=== PATIENT | female | born 1980 ===

== ENCOUNTER 2019-04-16 23:02 | Emergency (ER) | payer OTHER ==
[~2019-04-16] VITALS: Ht 150 cm; Wt 77.2 kg
[2019-04-16 23:09] VITALS: BP 118/78; TEMP 98.2
[2019-04-17 00:17] LABS: COLLECTION METHOD CLEAN CATCH
[2019-04-17 00:22] LABS: BASO % 0.5 % (0.0-2.0); EOS % 0.5 % (0-4.0); GRAN # 4.1 (1.4-6.5); GRAN % 71.9 % (42.2-75.2); HEMATOCRIT 40.7 % (37.0-47.0); HEMOGLOBIN 12.8 g/dl (12.5-16.0); LYMPH % 18.4 % (20.0-51.0); MEAN CELL VOLUME 78 fl (80.0-100.0); MEAN CORPUSCULAR HEMOGLOBIN 25 pg (27.0-31.0); MEAN CORPUSCULAR HGB CONC 31 g/dl (33.0-37.0); MEAN PLATELET VOLUME 9.8 fl (7.4-10.4); MONO # 0.5 (0.1-0.6); MONO % 8.3 % (1.7-9.3); PLATELET COUNT 270 K/mm3 (130-400); RED BLOOD COUNT 5.21 M/mm3 (4.10-5.30)
[2019-04-17 00:25] LABS: MUCOUS Present /lpf; PH 7 (5-8); SQUAMOUS EPITHELIAL 0-2 /hpf; URINE APPEARANCE Clear; URINE BACTERIA None Seen /hpf; URINE BILIRUBIN Negative (NEGATIVE); URINE BLOOD Negative (NEGATIVE); URINE COLOR Yellow; URINE GLUCOSE Negative (NEGATIVE); URINE KETONE Negative (NEGATIVE); URINE LEUKOCYTE ESTERASE Negative (NEGATIVE); URINE NITRATE Negative (NEGATIVE); URINE PROTEIN(semi-quant) Negative (NEGATIVE); URINE RBC 0-2 /hpf; URINE UROBILINOGEN Negative (NEGATIVE)
[2019-04-17 00:34] LABS: ALANINE AMINOTRANSFERASE < 6 U/L (9-52); ALBUMIN 3.9 gm/dL (3.5-5.0); ALKALINE PHOSPHATASE 78 U/L (50-136); ANION GAP 11 mmol/L (7-16); AST,SGOT 18 U/L (15-37); BILIRUBIN,TOTAL 0.5 mg/dL (0.0-1.0); BLOOD UREA NITROGEN 10 mg/dL (7-17); C-REACTIVE PROTEIN 2.1 mg/dL (0.0-0.9); CALCIUM 9.1 mg/dL (8.4-10.2); CARBON DIOXIDE 24 mmol/L (22-30); CHLORIDE 104 mmol/L (98-107); CREATININE, serum 0.64 (0.52-1.25); GLUCOSE 94 mg/dL (74-106); LIPASE 31 U/L (23-300); SODIUM 139 mmol/L (137-145); TOTAL PROTEIN 7.5 gm/dL (6.4-8.2)
[2019-04-17 00:44] LABS: TROPONIN-I < 0.012 ng/mL (0.000-0.035)
[2019-04-17 01:36] VITALS: PULSE 67
== END 2019-04-17 01:36 | disposition home or self-care (01) ==
LOC: COL.ER 23:02
PROVIDERS: Nurse Practitioner
DX: R07.89 Other chest pain (principal)
CPT/HCPCS: J1885; J7030

== ENCOUNTER 2019-05-30 18:08 | Emergency (ER) | payer OTHER ==
[2019-05-30 18:15] VITALS: BP 124/75; TEMP 97
[2019-05-30 18:44] LABS: EOS # 0.1 (0.0-0.7); EOS % 1.3 % (0-4.0); GRAN # 2.1 (1.4-6.5); GRAN % 52.7 % (42.2-75.2); HEMATOCRIT 39.3 % (37.0-47.0); HEMOGLOBIN 12.3 g/dl (12.5-16.0); LYMPH # 1.4 (1.2-3.4); LYMPH % 35.9 % (20.0-51.0); MEAN CELL VOLUME 79 fl (80.0-100.0); MEAN CORPUSCULAR HEMOGLOBIN 25 pg (27.0-31.0); MEAN CORPUSCULAR HGB CONC 31 g/dl (33.0-37.0); MEAN PLATELET VOLUME 9.8 fl (7.4-10.4); MONO # 0.4 (0.1-0.6); MONO % 8.8 % (1.7-9.3); PLATELET COUNT 301 K/mm3 (130-400); RED BLOOD COUNT 4.96 M/mm3 (4.10-5.30); REDCELL DISTRIBUTION WIDTH-CV 13.7 % (11.5-14.5)
[2019-05-30 18:56] LABS: ALANINE AMINOTRANSFERASE < 6 U/L (9-52); ALBUMIN 3.7 gm/dL (3.5-5.0); ALKALINE PHOSPHATASE 83 U/L (50-136); ANION GAP 9 mmol/L (7-16); AST,SGOT 18 U/L (15-37); BILIRUBIN,TOTAL 0.4 mg/dL (0.0-1.0); BLOOD UREA NITROGEN 8 mg/dL (7-17); C-REACTIVE PROTEIN 1.2 mg/dL (0.0-0.9); CALCIUM 8.9 mg/dL (8.4-10.2); CARBON DIOXIDE 25 mmol/L (22-30); CHLORIDE 106 mmol/L (98-107); CREATININE, serum 0.56 (0.52-1.25); GLUCOSE 93 mg/dL (74-106); POTASSIUM 4.3 mmol/L (3.4-5.0); SODIUM 140 mmol/L (137-145); TOTAL PROTEIN 7.1 gm/dL (6.4-8.2)
[2019-05-30 19:37] LABS: COLLECTION METHOD CLEAN CATCH
[2019-05-30 19:50] LABS: MUCOUS Present /lpf; PH 6 (5-8); URINE APPEARANCE Hazy; URINE BACTERIA None Seen /hpf; URINE BILIRUBIN Negative (NEGATIVE); URINE BLOOD Negative (NEGATIVE); URINE COLOR Yellow; URINE GLUCOSE Negative (NEGATIVE); URINE KETONE Negative (NEGATIVE); URINE LEUKOCYTE ESTERASE Negative (NEGATIVE); URINE NITRATE Negative (NEGATIVE); URINE PROTEIN(semi-quant) Negative (NEGATIVE); URINE RBC 0-2 /hpf; URINE UROBILINOGEN Negative (NEGATIVE)
[2019-05-30 21:50] VITALS: PULSE 61
== END 2019-05-30 22:19 | disposition home or self-care (01) ==
LOC: COL.ER 18:08
PROVIDERS: Emergency Medicine
DX: R10.31 Right lower quadrant pain (principal); R10.32 Left lower quadrant pain; R19.7 Diarrhea, unspecified
CPT/HCPCS: J1885; J2405; J7030; Q9967

== ENCOUNTER 2019-06-29 22:33 | Emergency (ER) | payer OTHER ==
[2019-06-29 22:43] VITALS: BP 110/67; TEMP 98.3
[2019-06-29 23:37] LABS: BASO % 0.5 % (0.0-2.0); EOS # 0.1 (0.0-0.7); EOS % 1.4 % (0-4.0); GRAN # 3.9 (1.4-6.5); HEMATOCRIT 38.2 % (37.0-47.0); HEMOGLOBIN 11.8 g/dl (12.5-16.0); LYMPH # 1.8 (1.2-3.4); LYMPH % 28.5 % (20.0-51.0); MEAN CELL VOLUME 78 fl (80.0-100.0); MEAN CORPUSCULAR HEMOGLOBIN 24 pg (27.0-31.0); MEAN CORPUSCULAR HGB CONC 31 g/dl (33.0-37.0); MEAN PLATELET VOLUME 9.3 fl (7.4-10.4); MONO # 0.5 (0.1-0.6); MONO % 7.3 % (1.7-9.3); PLATELET COUNT 306 K/mm3 (130-400); RED BLOOD COUNT 4.87 M/mm3 (4.10-5.30); REDCELL DISTRIBUTION WIDTH-CV 13.7 % (11.5-14.5)
[2019-06-30 00:03] LABS: ALANINE AMINOTRANSFERASE < 6 U/L (9-52); ALBUMIN 4.3 gm/dL (3.5-5.0); ALKALINE PHOSPHATASE 86 U/L (50-136); ANION GAP 8 mmol/L (7-16); AST,SGOT 28 U/L (15-37); BILIRUBIN,TOTAL 0.2 mg/dL (0.0-1.0); BLOOD UREA NITROGEN 13 mg/dL (7-17); C-REACTIVE PROTEIN 1.9 mg/dL (0.0-0.9); CARBON DIOXIDE 26 mmol/L (22-30); CHLORIDE 105 mmol/L (98-107); CREATININE, serum 0.59 (0.52-1.25); GLUCOSE 100 mg/dL (74-106); POTASSIUM 4.3 mmol/L (3.4-5.0); SODIUM 139 mmol/L (137-145); TOTAL PROTEIN 7.5 gm/dL (6.4-8.2)
[2019-06-30 00:32] VITALS: PULSE 75
== END 2019-06-30 00:33 | disposition home or self-care (01) ==
LOC: COL.ER 22:33
PROVIDERS: Nurse Practitioner
DX: R51 Headache (principal)

== ENCOUNTER 2019-11-17 00:40 | Emergency (ER) | payer OTHER ==
[~2019-11-17] VITALS: Ht 150 cm; Wt 70.0 kg
[2019-11-17 00:43] VITALS: TEMP 97.2
[2019-11-17 01:23] LABS: COLLECTION METHOD CLEAN CATCH
[2019-11-17 01:28] LABS: PH 6 (5-8); SQUAMOUS EPITHELIAL 0-2 /hpf; URINE APPEARANCE Clear; URINE BACTERIA None Seen /hpf; URINE BILIRUBIN Negative (NEGATIVE); URINE BLOOD Negative (NEGATIVE); URINE COLOR Yellow; URINE GLUCOSE Negative (NEGATIVE); URINE KETONE Negative (NEGATIVE); URINE LEUKOCYTE ESTERASE Negative (NEGATIVE); URINE NITRATE Negative (NEGATIVE); URINE PROTEIN(semi-quant) Negative (NEGATIVE); URINE RBC 0-2 /hpf; URINE UROBILINOGEN Negative (NEGATIVE)
[2019-11-17 01:37] LABS: BASO % 0.7 % (0.0-2.0); EOS # 0.1 (0.0-0.7); EOS % 1.5 % (0-4.0); GRAN # 3.3 (1.4-6.5); GRAN % 54.5 % (42.2-75.2); HEMATOCRIT 38.9 % (37.0-47.0); HEMOGLOBIN 11.7 g/dl (12.5-16.0); LYMPH % 33.3 % (20.0-51.0); MEAN CELL VOLUME 80 fl (80.0-100.0); MEAN CORPUSCULAR HEMOGLOBIN 24 pg (27.0-31.0); MEAN CORPUSCULAR HGB CONC 30 g/dl (33.0-37.0); MEAN PLATELET VOLUME 9.9 fl (7.4-10.4); MONO # 0.6 (0.1-0.6); MONO % 9.7 % (1.7-9.3); PLATELET COUNT 274 K/mm3 (130-400); RED BLOOD COUNT 4.89 M/mm3 (4.10-5.30); REDCELL DISTRIBUTION WIDTH-CV 14.8 % (11.5-14.5)
[2019-11-17 01:48] LABS: ALANINE AMINOTRANSFERASE < 6 U/L (9-52); ALBUMIN 3.9 gm/dL (3.5-5.0); ALKALINE PHOSPHATASE 66 U/L (50-136); ANION GAP 8 mmol/L (7-16); AST,SGOT 15 U/L (15-37); BILIRUBIN,TOTAL < 0.1 mg/dL (0.0-1.0); BLOOD UREA NITROGEN 12 mg/dL (7-17); CALCIUM 8.8 mg/dL (8.4-10.2); CARBON DIOXIDE 25 mmol/L (22-30); CHLORIDE 107 mmol/L (98-107); CREATININE, serum 0.63 (0.52-1.25); GLUCOSE 108 mg/dL (74-106); SODIUM 140 mmol/L (137-145); TOTAL PROTEIN 7.2 gm/dL (6.4-8.2)
[2019-11-17 02:18] LABS: HCG,QUANTITATIVE 3730 mIU/mL (0-5)
[2019-11-17 05:45] VITALS: BP 111/77; PULSE 74
== END 2019-11-17 05:47 | disposition home or self-care (01) ==
LOC: COL.ER 00:40
PROVIDERS: Emergency Medicine
DX: O26.891 Other specified pregnancy related conditions, first trimester (principal); R10.2 Pelvic and perineal pain; Z3A.01 Less than 8 weeks gestation of pregnancy; Z98.890 Other specified postprocedural states
CPT/HCPCS: J7030

== ENCOUNTER 2019-11-29 09:26 | Day surgery (SDC) | payer OTHER ==
[2019-11-29] VITALS (10 sets, daily range): BP systolic 100–124; BP diastolic 44–73; PULSE 46–67; TEMP 97.9–98
[~2019-11-29] VITALS: Ht 152.4 cm; Wt 76.1 kg
[2019-11-29] MEDS ORDERED: MOTRIN 800800 MG/TAB PO (09:42)
--- NOTE | 2019-11-29 10:30 | NUR ---
DR BOYCE INTO SEE PATIENT AND TALKED WITH TO TRANSLATE. DR BOYCE GAVE PATIENT'S A PRESCRIPTION FOR MOTRIN 800MG
--- NOTE | 2019-11-29 10:31 | NUR ---
CALL LIGHT IN REACH AT BEDSIDE.
--- NOTE | 2019-11-29 10:39 | NUR ---
I OFFERED TO USE A SEARCH STRATEGIST TO ASSIST WITH TRANSLATION. PATIENT DENIES NEEDING A SEARCH STRATEGIST. (OFFERED SEVERAL TIMES)
--- NOTE | 2019-11-29 11:25 | NUR ---
TO RM 5 PER CART FROM [facility] ARRIVAL PATIENT CRYING IN PAIN. Arnaldo SPENCE CRNA STATED IF THE ORAL PAIN MED DOESN'T HELP SHE WILL ORDER TORADOL. DENIES NAUSEA ( PER TRANSLATED BY )
--- NOTE | 2019-11-29 11:40 | NUR ---
RECEIVED PERCOCET 5MG PO ORDERED
--- NOTE | 2019-11-29 11:55 | NUR ---
PATIENT SLEEPING QUIETLY.
--- NOTE | 2019-11-29 12:10 | NUR ---
AWAKE ON AND OFF. WHEN SHE IS AWAKE SHE HAS A GRIMACE ON HER FACE.
--- NOTE | 2019-11-29 12:45 | NUR ---
RECEIVED 2ND PERCOCET 5MG ORDERED FOR C/O PAIN 08/15.
--- NOTE | 2019-11-29 13:05 | NUR ---
RECEIVED TORADOL 30MG IV PER ORDER.
--- NOTE | 2019-11-29 13:15 | NUR ---
STATED PAIN IS BETTER 3/10 RECEIVED MUFFIN AND APPLE JUICE.
--- NOTE | 2019-11-29 13:25 | NUR ---
C/O FEELING NAUSEATED . RECEIVED ZOFRAN 4MG IV
--- NOTE | 2019-11-29 13:40 | NUR ---
C/O FEELING LIGHT HEADED AND DIZZY. CONTINUES TO C/O NAUSEA RECEIVED TOAST.
--- NOTE | 2019-11-29 14:07 | NUR ---
PATIENT STATED SHE IS FEELING BETTER WITH JUST LITTLE BIT OF NAUSEA AND PAIN 3/10. REQUESTED TO LOWER HEAD OF BED AND REST. LOWERED HOB AND TURNED DOWN LIGHTS. PATIENT SLEEPING.
--- NOTE | 2019-11-29 14:10 | NUR ---
PATIENT DID EAT 1 SLICE OF TOAST AND DRANK JUICE.
--- NOTE | 2019-11-29 14:30 | NUR ---
SLEEPING QUIETLY WITH NO SIGNS OF DISTRESS.
--- NOTE | 2019-11-29 14:49 | NUR ---
PATIENT AWAKENS EASILY. STATED SHE FEELS BETTER EXCEPT FOR THE DIZZYNESS. RAISED THE HEAD OF THE BED SLOWLY
--- NOTE | 2019-11-29 15:11 | NUR ---
FAISAL MACIEL CALLED CONCERNING PATIENTS DIZZINESS. ORDER TO GIVE ANTIVERT 25MG PO NOW. AFTER GIVING THE MEDICATION PATIENT SAID SHE WANTED TO STAY THE NIGHT. I EXPLAINED THAT MOST OF THE TIME PATIENT GO HOME AFTER A D&C PROCEDURE. I DID OFFER TO CALL DR BOYCE IF THEY WOULD LIKE. PATIENT'S THEN SAID HE WANTED TO GO OVER THE PAPERWORK TO GO HOME.
--- NOTE | 2019-11-29 15:20 | NUR ---
PATIENT AMBULATED TO BATHROOM AND TOLERATED WELL STATED SHE STILL FELT "LITTLE DIZZY" PER TRANSLATION FROM . DISCONTNIUED IV AND INT- PATIENT GETTING DRESSED. PATIENT STATED CONCERNS OF HER CHILDREN LETTING HER REST. INSTRUCTED PATIENTS HE WOULD NEED TO TAKE OF CHILDREN SO PATIENT COULD REST AT HOME, HE VERBALIZED UNDERSTANDING.
--- NOTE | 2019-11-29 15:35 | NUR ---
RECEIVED DISCHARGE INSTRUCTIONS - TRANSLATED TO PATIENT BY CARLOS EDUARDO BARLOW.
--- NOTE | 2019-11-29 16:03 | NUR ---
DISCHARGED PER WC BY NURSING STAFF TO PRIVATE CAR IN CARE OF HADI.
== END 2019-11-29 16:18 | disposition home or self-care (01) ==
LOC: SDCO 09:26
DX: O03.4 Incomplete spontaneous abortion without complication (principal)
CPT/HCPCS: J0690; J1885; J2405; J2704; J3010; J7120

== ENCOUNTER 2020-03-11 23:44 | Emergency (ER) | payer OTHER ==
[~2020-03-11] VITALS: Ht 150 cm; Wt 70.0 kg
[~2020-03-11 23:44] MED LIST: CEFTIN500 MG PO; MOTRIN 800800 MG/TAB PO; PERCOCET 325 MG1 TA2 PO
[2020-03-11 23:52] VITALS: BP 114/78; TEMP 97.1
[2020-03-12 00:49] LABS: COLLECTION METHOD CLEAN CATCH
[2020-03-12 00:56] LABS: MUCOUS Present /lpf; PH 6 (5-8); SQUAMOUS EPITHELIAL 0-2 /hpf; URINE APPEARANCE Hazy; URINE BACTERIA None Seen /hpf; URINE BILIRUBIN Negative (NEGATIVE); URINE BLOOD Negative (NEGATIVE); URINE COLOR Yellow; URINE GLUCOSE Negative (NEGATIVE); URINE KETONE Negative (NEGATIVE); URINE LEUKOCYTE ESTERASE Negative (NEGATIVE); URINE NITRATE Negative (NEGATIVE); URINE PROTEIN(semi-quant) Negative (NEGATIVE); URINE RBC 0-2 /hpf; URINE UROBILINOGEN Negative (NEGATIVE)
[2020-03-12 00:56] LABS: HEMATOCRIT 39.9 % (37.0-47.0); HEMOGLOBIN 12.3 g/dl (12.5-16.0); MEAN CELL VOLUME 79 fl (80.0-100.0); MEAN CORPUSCULAR HEMOGLOBIN 24 pg (27.0-31.0); MEAN CORPUSCULAR HGB CONC 31 g/dl (33.0-37.0); MEAN PLATELET VOLUME 9.8 fl (7.4-10.4); PLATELET COUNT 310 K/mm3 (130-400); RED BLOOD COUNT 5.04 M/mm3 (4.10-5.30); REDCELL DISTRIBUTION WIDTH-CV 14.2 % (11.5-14.5)
[2020-03-12 01:05] LABS: ALANINE AMINOTRANSFERASE 10 U/L (4-34); ALKALINE PHOSPHATASE 65 U/L (50-136); ANION GAP 6 mmol/L (7-16); AST,SGOT 20 U/L (15-37); BILIRUBIN,TOTAL 0.2 mg/dL (0.0-1.0); BLOOD UREA NITROGEN 12 mg/dL (7-17); C-REACTIVE PROTEIN 1.5 mg/dL (0.0-0.9); CALCIUM 9.1 mg/dL (8.4-10.2); CARBON DIOXIDE 26 mmol/L (22-30); CHLORIDE 107 mmol/L (98-107); GLUCOSE 87 mg/dL (74-106); POTASSIUM 4.1 mmol/L (3.4-5.0); SODIUM 139 mmol/L (137-145); TOTAL PROTEIN 7.3 gm/dL (6.4-8.2)
[2020-03-12 01:14] LABS: TROPONIN-I < 0.012 ng/mL (0.000-0.035)
[2020-03-12] MEDS ORDERED: FLEXERIL 1010 MG/TAB PO (01:41)
[2020-03-12 01:54] VITALS: PULSE 71
[2020-03-15 06:53] LABS: BASO % 0.6 % (0.0-2.0); EOS # 0.1 (0.0-0.7); EOS % 2.4 % (0-4.0); GRAN # 2.8 (1.4-6.5); GRAN % 56.5 % (42.2-75.2); LYMPH # 1.6 (1.2-3.4); MONO # 0.4 (0.1-0.6); MONO % 7.4 % (1.7-9.3)
[2020-03-15 06:54] LABS: LYMPH % 32.7 % (20.0-51.0)
== END 2020-03-12 01:55 | disposition home or self-care (01) ==
LOC: COL.ER 23:44
PROVIDERS: Physician Assistant
DX: M54.2 Cervicalgia (principal); M79.602 Pain in left arm